=== PATIENT | female | born 1965 | race American Indian/Alaskan Native ===

== ENCOUNTER → 2017-05-21 | Outpatient (CLI) | payer MEDICARE, OTHER ==
[~2017-05-21] MED LIST: Azopt10 ML OP; CITA20 PO; CYCL10 PO; FLUT110OIA INH; IBUP600 PO; MAGOX 400400 MG PO; METF500C PO; NITR.6SL SL; Norco 5-325 Ta1 EACH PO; OMEPRAZOLE MAGN20 MG PO; PROP30DR BOTHEYES; [UNRECOGNIZED DRUG - CODE] BOTHEYES
== END ==
LOC: PLD 08:13 → LAB SHORT 08:13
DX: L08.89 Other specified local infections of the skin and subcutaneous tissue (principal); R23.4 Changes in skin texture
CPT/HCPCS: 88305

== ENCOUNTER → 2017-06-29 | Outpatient (CLI) | payer MEDICARE, OTHER | LOC: LAB 16:04 | DX: Z48.02 Encounter for removal of sutures (principal); L08.9 Local infection of the skin and subcutaneous tissue, unspecified | CPT/HCPCS: 87070; 87077; 87147; 87186; 87205 ==

== ENCOUNTER → 2017-07-23 | Outpatient (CLI) | payer MEDICARE, OTHER ==
[2017-07-24 04:59] LABS: Source Cervix
== END ==
LOC: LAB SHORT 13:11 → LAB 13:11
PROVIDERS: Nurse Practitioner Family
DX: Z01.419 Encounter for gynecological examination (general) (routine) without abnormal findings (principal)
CPT/HCPCS: G0145

== ENCOUNTER → 2018-08-09 | Outpatient (CLI) | payer OTHER | END | disposition home or self-care (01) | LOC: LAB EV 12:35 → LAB SHORT 12:35 | DX: J02.9 Acute pharyngitis, unspecified (principal) | CPT/HCPCS: 87070 ==

== ENCOUNTER 2019-06-29 10:19 | Day surgery (SDC) | payer OTHER ==
[~2019-06-29] VITALS: Ht 149.9 cm; Wt 118.0 kg
[~2019-06-29 10:19] MED LIST changes: +ASPIR 8181 M1 PO; +Flonase 0.05% N16 GM; +GLIM2 PO; +MULTIPLE VITAM1 EACH PO; +OMEGA-3 + D SO1 EACH PO; +Pedi-Dri 100,0060 GM TOP; +SUMA25 PO; +TIZA4 PO; +Voltaren100 GM TOP
[2019-06-29] MEDS ORDERED: METO25ER PO (11:16)
--- NOTE | 2019-06-29 13:05 | NUR ---
PT TO RECOVERY ROOM POST PROCEDRE. PT IS ALERT AND ORIENTED, CONVERSNG APPROPRIATELY. PT DENIES CHEST PAIN/PRESSURE POST PROCEDURE. MONITOR SR WITH IVCD 60'S, B/P 155/82, AFEBRILE, SPO2 96% RA. R RADIAL SITE NO SWELLING/HEMATOMA, TR BAND IN PLACE WITH 11 CC AIR.
--- NOTE | 2019-06-29 13:50 | NUR ---
PT TAKING LUNCH WITHOUT PROBLEM, FAMILY AT BEDSIDE ATTENTIVE.
--- NOTE | 2019-06-29 13:50 | NUR ---
RIGHT RADIAL TR BAND SITE SOFT WITH NO HEMATOMA AND NO PULSATILE BLEEDING. PT EATING LUNCH AND FAMILY IN ROOM; CALL LIGHT IN REACH.
--- NOTE | 2019-06-29 14:46 | NUR ---
11 CC OF AIR REMOVED OUT OF NOW DEFLATAED RIGHT TR BAND; NO HEMATOMA, NO PULSATILE BLEEDING AND SOFT. DISCHARGE INSTRUCTIONS REVIEWED AND ALL QUESTIONS ANSWERED. PT'S AND FAMILY IN ROOM. CALL LIGHT IN REACH.
--- NOTE | 2019-06-29 15:23 | NUR ---
PT AMB TO BATHROOM WITHOUT ISSUE, GAIT STEADY; SITE UNCHANGED WITH ACTIVITY.
--- NOTE | 2019-06-29 15:55 | NUR ---
PT DRESSED SELF WITH MIN ASSISTANCE, SITE UNCHANGED. TR BAND REMOVED, CLOTH DOT, WRIST IMMOBILIZER AND SLING PLACED; IV REMOVED-CANNULA INTACT. REVIEWED SITE MANAGEMENT WITH PT AND FAMILY.
--- NOTE | 2019-06-29 16:05 | NUR ---
REVIEWED DISCHARGE INSTRUCTIONS, MED LIST AND AFTER CARE INSTRUCTIONS WITH PT AND FAMILY, VERBALIZED GOOD UNDERSTANDING. PT LEFT FACILITY VIA W/C, CONDITION STABLE.
== END 2019-06-29 16:05 | disposition home or self-care (01) ==
LOC: MHTC 10:19
PROC: B205YZZ Plain Radiography of Left Heart using Other Contrast (ICD-10-PCS; principal; 2019-06-29)
PROC: B201YZZ Plain Radiography of Multiple Coronary Arteries using Other Contrast (ICD-10-PCS; principal; 2019-06-29)
PROC: 4A023N7 Measurement of Cardiac Sampling and Pressure, Left Heart, Percutaneous Approach (ICD-10-PCS; principal; 2019-06-29)
DX: I25.119 Atherosclerotic heart disease of native coronary artery with unspecified angina pectoris (principal); E66.9 Obesity, unspecified; K21.9 Gastro-esophageal reflux disease without esophagitis; F32.9 Major depressive disorder, single episode, unspecified; E11.9 Type 2 diabetes mellitus without complications; Z87.891 Personal history of nicotine dependence; Z79.82 Long term (current) use of aspirin; Z79.899 Other long term (current) drug therapy; Z79.84 Long term (current) use of oral hypoglycemic drugs; I82.409 Acute embolism and thrombosis of unspecified deep veins of unspecified lower extremity; I45.10 Unspecified right bundle-branch block; I11.9 Hypertensive heart disease without heart failure; Z85.72 Personal history of non-Hodgkin lymphomas
CPT/HCPCS: 82947; 93458; 99152; C1769; C1894; J1644; J2250; J3010; J7030; Q9967

== ENCOUNTER → 2021-11-09 | Outpatient (CLI) | payer OTHER ==
[~2021-11-09] MED LIST changes: +METO25ER PO
[2021-11-09 11:31] LABS: BASOPHILS ABSOLUTE AUTO 0.04 K/mm3 (0.00-0.23); BASOPHILS PERCENT AUTO 1 % (0-2); EOSINOPHILS PERCENT AUTO 1 % (0-6); Hematocrit 45.6 % (33.0-51.0); Hemoglobin 15.6 g/dL (11.5-16.0); IMMATURE GRAN ABSOLUTE AUTO 0.02 K/mm3 (0.00-0.10); IMMATURE GRAN PERCENT AUTO 0 % (0-1); LYMPHOCYTES ABSOLUTE AUTO 2.37 K/mm3 (0.84-5.20); LYMPHOCYTES PERCENT AUTO 29 % (21-46); MONOCYTES ABSOLUTE AUTO 0.45 K/mm3 (0.16-1.47); MONOCYTES PERCENT AUTO 6 % (4-13); Mean Corpuscular HGB 31.4 pg (26.0-34.0); Mean Corpuscular HGB Conc 34.2 g/dL (31.5-36.5); Mean Corpuscular Volume 92 fL (80-100); Mean Platelet Volume 9.6 fL (9.1-12.4); NEUTROPHILS ABSOLUTE AUTO 5.26 K/mm3 (1.96-9.15); NEUTROPHILS PERCENT AUTO 64 % (41-73); Platelet Count 215 K/mm3 (150-400); RDW Coefficient Variation 13.2 % (11.7-14.2); RDW Standard Deviation 44.4 fL (35.1-46.3); Red Blood Cell Count 4.97 M/mm3 (3.80-5.20); White Blood Cell Count 8.24 K/mm3 (4.00-11.30)
[2021-11-09 11:44] LABS: Albumin, Blood 3.5 g/dL (3.4-5.0); Albumin/Globulin Ratio 0.7 (0.8-1.8); Bilirubin, Total 0.6 mg/dL (0.1-1.0); Bun/Creatinine Ratio 14.3 (12.0-20.0); Calcium, Blood 9.1 mg/dL (8.5-10.1); Creatinine, Blood 0.63 mg/dL (0.40-1.00); Globulin, Blood 5.1 g/dL (2.2-4.0); Potassium, Blood 4.1 mmol/L (3.5-5.5); Total Protein, Blood 8.6 g/dL (6.4-8.2)
== END ==
LOC: LAB 11:24 → LAB SHORT 11:24
PROVIDERS: General Practice
DX: M54.31 Sciatica, right side (principal)
CPT/HCPCS: 80053; 85025; 85379

== ENCOUNTER → 2021-12-04 | Outpatient (CLI) | payer OTHER | END | disposition home or self-care (01) | LOC: LAB 15:57 → LAB SHORT 15:57 | DX: J03.90 Acute tonsillitis, unspecified (principal) | CPT/HCPCS: 87081; 87147 ==